=== PATIENT | female | born 1990 | race Caucasian/White ===

== ENCOUNTER → 2018-01-05 13:43 | Observation (INO) ==
[2018-01-05 12:56] LABS: Bilirubin,Urine Small (Negative); Blood,Urine Negative (Negative); Clarity,Urine Clear (Clear); Color,Urine Yellow (Yellow); Glucose,Urine (UA) Normal (Normal); Ketones,Urine Trace mg/dL (Negative); Leukocyte Esterase,Urine Negative (Negative); Nitrite,Urine Negative (Negative); Protein,Urine 30 mg/dL (Neg-Trace); Specific Gravity,Urine >= 1.030 (1.010-1.025); Urobilinogen,Urine Normal (Normal)
[2018-01-05 13:09] LABS: Amphetamine Screen,Urine Negative ng/mL (Cutoff=1000); Barbiturate Screen,Urine Negative ng/mL (Cutoff=200); Benzodiazepines Screen,Urine Negative ng/mL (Cutoff=200); Cannabinoid Screen,Urine Negative ng/mL (Cutoff = 50); Cocaine Screen,Urine Negative ng/mL (Cutoff= 300); Opiate Screen,Urine Negative ng/mL (Cutoff=300); Phencyclidine Screen,Urine Negative ng/mL (Cutoff=25)
[2018-01-05 13:10] LABS: Mucus,Urine Many (Few); Squamous Epithelial Cell,Urine Many per lpf (None-Few)
[2018-01-05 13:12] LABS: Bacteria,Urine Many per hpf (None-Few)
--- NOTE | 2018-01-05 13:25 | OB/GYN Progress Note ---
Date of Encounter: 01/05/18 Time of Encounter: 13:20 - Assessment and Plan (1) 37 weeks gestation of Current Visit: Yes Status: Acute FHR 110 Reactive NST Contractions every 2-7 minutes per toco, palpate mild Serial cervical exams, no change Discharge home with labor precautions Follow up in office for routine care and prn Subjective - Subjective Interval history: at 37 weeks and 6 days gestation presents to triage with complaints cramping. Denies vaginal bleeding or leaking fluid, states baby moving well. Denies STOREY, visual disturbances and epigastric pain. Antepartum ROS: new complaints, movement normal, contractions Objective - Vital Signs Vital Signs: Intake and Output 01/04/18 01/05/18 01/05/18 23:59 07:59 15:59 Other: Weight 88.003 kg Patient Weight 01/05/18 23:59 Weight 88.003 kg - Exam FHR: auscultation normal, category 1 Auscultation: bilateral: normal Abdomen: Present: soft, gravid Cervical dilation: 3 Cervix effacement: 80 station: -2 Comments: VE per RN - Labs Labs: Abnormal lab results Ur Specific [place] >= 1.030 (1.010-1.025) H 01/05/18 12:40 Urine Protein 30 mg/dL (Neg-Trace) H 01/05/18 12:40 Urine Ketones Trace mg/dL (Negative) H 01/05/18 12:40 Urine Bilirubin Small (Negative) H 01/05/18 12:40 Urine Microscopic WBC 5-15 per hpf (0-3) H 01/05/18 12:40 Ur Squamous Epith Cells Many per lpf (None-Few) H 01/05/18 12:40 Urine Bacteria Many per hpf (None-Few) H 01/05/18 12:40 Urine Mucus Many (Few) H 01/05/18 12:40
== END | disposition home or self-care (01) ==
LOC: 1NENULAB
PROVIDERS: ADMIT Student in an Organized Health Care Education/Training Program; ATTEND Student in an Organized Health Care Education/Training Program

== ENCOUNTER 2018-01-17 08:00 | Inpatient (IN) ==
[2018-01-17] MEDS ORDERED: Metoclopramide 10 MG/2 ML VIAL IVP PRN (08:36)
[2018-01-17] MEDS ORDERED: Naloxone 0.4 MG/ML INJ IVP PRN (08:36)
[2018-01-17] MEDS ORDERED: Famotidine 20 MG/2 ML VIAL IVP PRN (08:36)
[2018-01-17] MEDS ORDERED: *HR* Nalbuphine 10 MG/ML AMPUL IVP PRN (08:36)
[2018-01-17] MEDS ORDERED: Oxytocin 20 units/ LR 1000 mL 20 UNIT/1,000 ML BAG IVC SCH ×2 (08:45→18:23)
[2018-01-17] MEDS ORDERED: Ringers Solution, Lactated 1,000 ML IVC SCH (08:45)
[2018-01-17 09:18] LABS: Basophils % 0.3 %; Eosinophils % 0.4 %; Hematocrit 38.6 % (35.3-44.9); Immature Granulocytes % 0.4 % (0-4); Lymphocytes # 1.6 K/mcL (0.6-4.6); Lymphocytes % 15.1 %; Mean Corpuscular HGB Conc 33.7 g/dL (31.6-35.5); Mean Corpuscular Hemoglobin 29.6 pg (28.0-33.3); Mean Corpuscular Volume 87.9 fL (83.0-100.0); Mean Platelet Volume 12.3 fL (9.4-12.4); Monocytes # 0.5 K/mcL (0.0-1.3); Monocytes % 4.9 %; Neutrophils # 8.5 K/mcL (1.6-8.9); Platelet Count 136 K/mcL (140-400); Red Blood Count 4.39 M/mcL (3.82-4.97); Segmented Neutrophils % 78.9 %
[2018-01-17 09:29] LABS: Amphetamine Screen,Urine Negative ng/mL (Cutoff=1000); Barbiturate Screen,Urine Negative ng/mL (Cutoff=200); Benzodiazepines Screen,Urine Negative ng/mL (Cutoff=200); Cannabinoid Screen,Urine Negative ng/mL (Cutoff = 50); Cocaine Screen,Urine Negative ng/mL (Cutoff= 300); Opiate Screen,Urine Negative ng/mL (Cutoff=300); Phencyclidine Screen,Urine Negative ng/mL (Cutoff=25)
[2018-01-17] MEDS ORDERED: Epidural Premix (fent/bupiv) 110 ML EP SCH (10:45)
--- NOTE | 2018-01-17 12:10 | OB/GYN History & Physical ---
Date of Encounter: 01/17/18 Time of Encounter: 09:57 Assessment and Plan (1) 39 weeks gestation of Current visit: Yes Status: Acute Admit for IOL. AROM for small amount clear fluid. Will augment with pitocin if no onset of labor within 2 hours. Epidural when requested. Anticipate . (2) Rh negative state in antepartum period Current visit: Yes Status: Acute History of Present Illness HPI: Ms. Shi is a 27 year old female presenting for IOL at 39w4d. This has been uncomplicated. Blood type O negative Rubella immune Serologies negative GBS negative Past Med Surg Social Fam HX - Past Medical History Medical history: no medical history Psychiatric history: no psych history - Past Surgical History Surgical History: non-contributory Additional surgical history: right knee surgery, left arm surgery, tonselectomy - Social History Smoking Status: Never smoker Smokeless Tobacco Status: No Alcohol use: none Drug use: none - Family History Mother Age: 57 Living Status: Still Living Hx Family Cardiac Disorders: Yes (htn) Hx Family Respiratory Disorders: No Hx Family Cancer: No Hx Family GI Disorders: No Hx Family Genitourinary Disorders: No Hx Family Endocrine Disorder: Yes (diabetic) Hx Family Musculoskeletal Disorders: No Hx Family Neuromuscular Disorders: No Hx Family Neurologic Disorders: No Hx Family HEENT Disorders: No Hx Family Autoimmune Disorders: No Hx Family Reproductive Disorders: No Hx Family Psychosocial Disorders: No Hx Family Medical Disorders: Yes (hypothyroidism) Obstetrical History - Pregnancies : 2 Para: 1 Term: 1 Livin Medications and Allergies B6/Levomefolate/B12/Ala/If 1 tab PO DAILY 01/05/18 [History] Colace 1 tab PO DAILY 01/05/18 [History] Formula Tablet 1 tab PO DAILY 01/05/18 [History] Formula Tablet 1 tab PO DAILY 01/17/18 [History] 3 Allergy/AdvReac Type Severity Reaction Status Date / Time No Known Allergies Allergy Verified 02/14/16 18:27 Review of System OB All systems PM: reviewed and no additional remarkable complaints except as stated Exam - Vital Signs Vital signs: Initial Vital Signs Temp Pulse Resp BP 97.3 F L 92 16 125/82 01/17/18 08:41 01/17/18 08:41 01/17/18 08:41 01/17/18 08:41 - Constitutional Constitutional: well developed, well nourished, no acute distress - HEENT HEENT: Mucus Membranes Moist - Lungs Respiratory exam: CTAB - Cardiovascular Cardiovascular exam: RRR - Abdomen Abdomen: Present: gravid, non tender - Extremities Extremities exam: normal inspection - Vagina Vagina: Present: normal moisture - Cervix Dilation: 4 Effacement: 80 Station: -1 - Anus/Rectum Anus/Rectum: Present: normal perianal skin Results Result Diagrams: 01/17/18 08:54 Abnormal lab results Plt Count 136 K/mcL (140-400) L 01/17/18 08:54 All other labs normal. - VTE Reasons for not Prescribing Prophylaxis: Treatment not Indicated - Low risk for VTE
--- NOTE | 2018-01-17 14:31 | Anesthesia Evaluation PreOp ---
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 HX Other Medical History: Denies Any Significant HX Anesthesia History: No Prior Anesthetic Complications : Yes Test: Positive Alcohol Use: none Drug use: none Medications and Allergies B6/Levomefolate/B12/Ala/If 1 tab PO DAILY 01/05/18 [History] Colace 1 tab PO DAILY 01/05/18 [History] Formula Tablet 1 tab PO DAILY 01/05/18 [History] Formula Tablet 1 tab PO DAILY 01/17/18 [History] 3 Allergy/AdvReac Type Severity Reaction Status Date / Time No Known Allergies Allergy Verified 02/14/16 18:27 - Meds/Allergy Pre-op Review Medications Reviewed: Yes Allergies Reviewed: No Beta Blockers on Current Med List: No Anesthesia Results - Labs 01/17/18 08:54 Anesthesia Exam - HEENT Pupil (Motor): Pupils equal Mallampati: I Teeth: Normal Oral Opening: Greater than 3 - STEAM CLEANING MACHINE OPERATOR LOC: Oriented STEAM CLEANING MACHINE OPERATOR Motor: Normal RUE, Normal LUE, Normal RLE, Normal LLE, Normal Face STEAM CLEANING MACHINE OPERATOR Sensory: Normal: RUE, LUE, RLE, LLE, Face - Cardiac Rhythm: Regular Murmur: None JVD: No Carotid Bruit: No - Pulmonary Breath Sounds: bilateral Clear Respiratory Effort: Symmetrical Anesthesia Assess/Plan ASA Score: 1 Modified [place] Scale for Level of Consciousness: Cooperative, oriented, and tranquil Anesthetic Plan: Regional Autologous Blood: No Monitoring Plan: Standard Monitors
--- NOTE | 2018-01-17 14:33 | Anesthesia Procedures ---
Date of Encounter: 01/17/18 Time of Encounter: 14:00 Procedures: Anesthesia - Epidural/Spinal Patient ID/Chart reviewed: Yes Patient examined: Yes OB Eval: Gestational age: 39.3 OB Eval: : 2 OB Eval: Hx Para: 1 OB Eval: Dilated at (cm): 5 OB Eval: Contractions: Non-stressed pattern Consent Obtained: Yes Supplemental Oxygen: None/Room Air Site Prep: Aseptic Technique, Sterile prep and drape, Povidone-Iodine 1% Patient position: upright Amount of Local Anesthetic used: 3 Touhy Needle Gauge: 18 Touhy Needle Depth (cm): 7 Catheter Depth at Skin (cm): 12 Test Dose (1.5% Lido + Epi): Volume given (mls): 3 Test Dose Result: Negative Loading Dose Administered: Thru Catheter Infusion Rate (mls/hr): [address]: Tegaderm, Tape Interspace Used: L4-L5 Loss of Resistance (SANDRA): Yes Blood: No CSF: No Paresthesia: No Vitals + FHT's: stable throughout see nursing notes
--- NOTE | 2018-01-17 16:14 | OB/GYN Procedure Note ---
Delivery - Delivery Date: 01/17/18 Provider: Rakel Villanueva Intrapartum events: none Delivery induction: AROM, oxytocin Delivery monitor: external uterine, internal FHT Anesthesia: epidural Quantitated Blood Loss: 300 - (s) Infant A Infant Delivery Date: 01/17/18 Delivery Time: 15:46 Presentation: vertex Position: ANA Route of delivery: Gender: Female Viability: Viable Pounds: 8 Ounces: 0 Weight Gram: 3.615 kg at 1 minute: 8 at 5 mins: 9 Shoulder Dystocia: not encountered Specimens collected: cord blood Placenta: spontaneous Cord: 3 umbilical vessels - Repair Episiotomy: none Laceration Description: None - Complications Delivery complications: none Delivery comments: Pt progressed normally to over intact perineum for viable female "Nayely" weighing 8lbs with apgars 8 at one minute and 9 at five minutes. After pulsations ceased the cord was clamped and cut and the placenta delivered spontaneous and intact. No repair needed. EBL 300ml. Mother and baby stable in kangaroo care following procedure. - Disposition Mom disposition: stable in LDR disposition: stable in LDR
[2018-01-17] MEDS ORDERED: Rho Immune Globulin 1,500 UNIT SYRINGE IM PRN (18:23)
[2018-01-17] MEDS ORDERED: Benzocaine/Menthol 56 GM AEROSOL SPRAY TP PRN (18:23)
[2018-01-17] MEDS ORDERED: Measles/Mumps/Rubella Vacc 0.5 ML VIAL SQ PRN (18:23)
[2018-01-17] MEDS ORDERED: Lanolin 28 GM TUBE TP PRN (18:23)
[2018-01-17] MEDS ORDERED: Acetaminophen 325 MG TABLET PO PRN (18:23)
[2018-01-17] MEDS: Ibuprofen 600 MG TABLET PO PRN (19:16)
[2018-01-18] MEDS: Ibuprofen 600 MG TABLET PO PRN ×2 (04:09→12:05)
[2018-01-18 07:50] VITALS: BP 122/79
[2018-01-18] MEDS ORDERED: Prenatal Vit/FA 1 EACH TABLET PO SCH (09:00)
--- NOTE | 2018-01-18 10:35 | Discharge Summary ---
Date of Encounter: 01/18/18 Time of Encounter: 10:33 - Discharge Diagnosis (1) Vaginal delivery Priority: Primary Status: Acute Comments: Doing well. Ambulating and voiding without difficulty. Tolerating regular diet. Lochia light and without clots. Mild cramping, well controlled with Ibuprofen. Infant at bedside, states well. Desires to be discharged today. - Discharge Medications Prescriptions: Ibuprofen [Motrin] 600 mg PO Q6HR PRN #30 tablet PRN Reason: Cramping Docusate [Colace] 100 mg PO BID #20 capsule Home Medications: B6/Levomefolate/B12/Ala/If 1 tab PO DAILY 01/05/18 [History] Acetaminophen [Tylenol] 650 mg PO Q6HR PRN tablet 01/18/18 [Rx] Benzocaine/Menthol [place] [Dermoplast [place]] 1 appl TP QID PRN aerosol 01/18/18 [Rx] Docusate [Colace] 100 mg PO BID #20 capsule 01/18/18 [Rx] Ibuprofen [Motrin] 600 mg PO Q6HR PRN #30 tablet 01/18/18 [Rx] Lanolin 1 appl TP Q4HR PRN tube 01/18/18 [Rx] Vit/FA 1 each PO DAILY tablet 01/18/18 [Rx] Allergies/Adverse Reactions: 3 Allergy/AdvReac Type Severity Reaction Status Date / Time No Known Allergies Allergy Verified 02/14/16 18:27 Data Procedures and tests throughout hospitalization: Laboratory Tests 01/17/18 01/17/18 01/17/18 08:54 08:54 16:10 WBC 10.8 RBC 4.39 Hgb 13.0 Hct 38.6 MCV 87.9 MCH 29.6 MCHC 33.7 RDW 14.0 Plt Count 136 L MPV 12.3 Immature Gran % 0.4 Seg Neutrophils % 78.9 Lymphocytes % 15.1 Monocytes % 4.9 Eosinophils % 0.4 Basophils % 0.3 Neutrophils # 8.5 Lymphocytes # 1.6 Monocytes # 0.5 Eosinophils # 0.0 Basophils # 0.0 Urine Opiates Screen Negative Ur Barbiturates Screen Negative Ur Phencyclidine Scrn Negative Ur Amphetamines Screen Negative U Benzodiazepines Scrn Negative Urine Cocaine Screen Negative U Marijuana (THC) Screen Negative Screen NEGATIVE Baby's Blood Type O RH POSITIVE Mother's Blood Type O RH NEGATIVE Rhogam Indicated YES Rhogam Req for Mother 1 Labs on day of discharge: Labs from last 24 hours 01/17/18 16:10 Screen NEGATIVE Baby's Blood Type O RH POSITIVE Mother's Blood Type O RH NEGATIVE Rhogam Indicated YES Rhogam Req for Mother 1 Date of admission: 01/17/18 08:13 Primary care physician: Octavio Evans, Consults: 01/17/18 18:23 Consult to Format Proofreader [CONS] Routine Comment: Vaginal delivery, consult needed Discharging clinician: Marielos Siegel Anticipated date of discharge: 01/18/18 - Patient Status Disposition: Home, Self-Care Condition: Good Functional capacity at discharge: independent ambulation Overall status at discharge: patient is progressing back to baseline - Discharge Instructions Follow Up With: Octavio Evans DO [Primary Care Provider] - Rakel Villanueva CNM [Non-Partnered Physician] - - Diet and Activity Activity: resume usual activities as tolerated Diet: advance to your usual diet Hospital Course Reason for admission: induction of labor Delivery: Episiotomy: none Laceration: none Other procedures: none complications: none Discharge diagnosis: IUP at term delivered baby: female Time spent discussing smoking cessation with patient: 3 to 10 minutes Time Attestation: Total time spent providing and/or coordinating discharge services: Time Spent: Less than 30 minutes Exam - Constitutional Vitals: Temp Pulse Resp BP Pulse Ox 97.8 F 71 20 122/79 98 01/18/18 07:49 01/18/18 07:49 01/18/18 07:49 01/18/18 07:49 01/18/18 07:49 General appearance IM: cooperative, A&O X 3, pleasant, answers questions appropriately - Respiratory Respiratory exam: Present: CTAB - Cardiovascular Cardiovascular exam IM: Present: RRR - GI/Abdominal GI/Abdominal exam IM: normal bowel sounds - Rectal Rectal exam: deferred - Uterine Tone: Firm Uterus Position: At Umbilicus, Midline - Extremities Exam Extremities exam IM: Present: full ROM, radial pulses palpable and symmetrical - Neurological Exam Neurological exam: alert, normal gait, oriented X3
== END 2018-01-18 16:30 | disposition home or self-care (01) | DRG 775 ==
LOC: 1NENULAB 08:13 → 1NENUOBS 18:22
PROVIDERS: ADMIT Registered Nurse; ATTEND Registered Nurse